=== PATIENT | male | born 1955 | race American Indian/Alaskan Native ===

== ENCOUNTER 2018-07-24 18:47 | Outpatient (CLI) | payer BC ==
--- NOTE | 2018-07-24 23:56 | XRay Report ---
PROCEDURE: Chest. TECHNIQUE: PA and lateral views. HISTORY: Left chest wall pain. COMPARISONS: None. FINDINGS: The heart size is normal. There is mild tortuosity of the thoracic aorta. The lungs are clear and wel l expanded. There are no pleural effusions. The soft tissues and regional skeleton are unremarkable. IMPRESSION: No evidence of acute disease. This document is electronically signed by Sumeet Schmidt MD., July 24 2018 11:54:03 PM ET
== END 2018-07-24 18:48 | disposition home or self-care (01) ==
LOC: XRAY 18:47
PROVIDERS: ATTEND Internal Medicine
DX: R07.89 Other chest pain (principal)
CPT/HCPCS: 71046